=== PATIENT | female | born 1980 | race American Indian/Alaskan Native ===

== ENCOUNTER 2021-11-13 23:48 | Emergency (ER) | payer MEDICAID, MEDICARE ==
[2021-11-14 01:36] LABS: Basophils # (Auto) 0.1 K/mm3 (0.0-0.1); Basophils % (Auto) 0.6 % (0.0-1.8); Eosinophils # (Auto) 0.2 K/mm3 (0.0-0.4); Eosinophils % (Auto) 1.6 % (0.0-4.3); Hematocrit 22.2 % (30.3-42.9); Hemoglobin 6.8 gm/dl (10.1-14.3); Lymphocytes # (Auto) 2.4 K/mm3 (1.2-5.4); Lymphocytes % (Auto) 25.7 % (13.4-35.0); Mean Corpuscular HGB Conc 31 % (30-34); Mean Corpuscular Volume 88 fl (79-97); Monocytes # (Auto) 0.6 K/mm3 (0.0-0.8); Platelet Count 462 K/mm3 (140-440); Red Blood Count 2.52 M/mm3 (3.65-5.03); Red Cell Distribution Width 17.8 % (13.2-15.2)
[2021-11-14 01:39] LABS: Alanine Aminotransferase 14 units/L (7-56); Albumin 3.9 g/dL (3.9-5); BUN/Creatinine Ratio 8; Blood Urea Nitrogen 7 mg/dL (7-17); Calcium 8.8 mg/dL (8.4-10.2); Hemolysis Index 0
[2021-11-14 11:19] VITALS: BP 140/76
--- NOTE | 2021-11-14 11:37 | Emergency Department Report ---
ED General Adult HPI - General Chief complaint: Recheck/Abnormal Lab/Rx Stated complaint: My doctor sent me here Time Seen by Provider: 11/14/21 11:23 Source: patient, RN notes reviewed, old records reviewed Mode of arrival: Ambulatory Limitations: No Limitations - History of Present Illness Initial comments: The patient was evaluated in the emergency department for symptoms described in the history of present illness. He/she was evaluated in the context of the global COVID-19 pandemic, which necessitated consideration that the patient might be at risk for infection with the virus that causes COVID-19. Institutional protocols and algorithms that pertain to the evaluation of patients at risk for COVID-19 are in a state of rapid change based on information released by regulatory bodies including the CDC and federal and state organizations. These policies and algorithms were followed during the patient's care in the emergency department. Please note that these policies, procedures and recommendations changed on a rapid basis. This is a pleasant and cooperative 41-year-old female, with a history of hypertension, diabetes, body mass index of 37, who indicates that she is a [employer]ational, who was referred to the emergency room by her outpatient primary care doctor for chronic minimally symptomatic anemia. The patient has follow-up with a punch out crew member this Tuesday. The patient reports heavy menstruation since April. She has mild shortness of breath, fatigue, lightheadedness. She denies physical pain. She is currently taking iron sulfate supplementation [id number], as well as a stool softener, as well as her other additional medications. She indicates that she essentially feels at her chronic baseline, and that she would have not a presented to the emergency room, if not referred by her primary care doctor. She currently denies hematemesis, bright red blood per rectum, and vaginal bleeding. She does report a subacute to chronic history of chronic vaginal bleeding -: month(s) Consistency: intermittent Improves with: rest Worsens with: movement - Related Data Home Medications Medication Instructions Recorded Confirmed Last Taken Citalopram Hydrobromide [Celexa] 40 mg PO DAILY 10/13/13 10/13/13 09/26/13 Previous Rx's Medication Instructions Recorded Last Taken Type Citalopram Hydrobromide [Celexa] 40 mg PO DAILY #30 tablet 10/14/13 Unknown Rx Ibuprofen [Motrin 800 MG tab] 800 mg PO Q8H #30 tablet 10/14/13 Unknown Rx Dicyclomine [Bentyl] 20 mg PO Q8H PRN #15 tablet 06/08/15 Unknown Rx Sulfamethoxazole/Trimethoprim 1 each PO BID #10 tablet 06/08/15 Unknown Rx [Bactrim DS TAB] polyethylene glycoL 3350 [Miralax 17 gm PO QDAY PRN #3 packet 06/08/15 Unknown Rx 3350] Allergies Allergy/AdvReac Type Severity Reaction Status Date / Time No Known Allergies Allergy Verified 06/08/15 06:40 ED Review of Systems ROS: Stated complaint: LOW HEMOGLOBIN Other details as noted in HPI Constitutional: malaise, weakness. denies: fever Eyes: denies: eye discharge ENT: denies: epistaxis Respiratory: shortness of breath Cardiovascular: denies: chest pain Gastrointestinal: denies: abdominal pain, hematemesis, melena, hematochezia Genitourinary: abnormal menses Neurological: weakness Hematological/Lymphatic: denies: easy bleeding ED Past Medical Hx - Past Medical History Previous Medical History?: Yes Hx Psychiatric Treatment: Yes (Bi-polar, PTSD, Depression, Anxiety) Hx Asthma: Yes (mild) Additional medical history: anxiety disorder - Surgical History Past Surgical History?: Yes Additional Surgical History: desmoid tumor disease 1990. c section - Social History Smoking Status: Never Smoker Substance Use Type: Alcohol - Medications Home Medications: Home Medications Medication Instructions Recorded Confirmed Last Taken Type Citalopram Hydrobromide [Celexa] 40 mg PO DAILY 10/13/13 10/13/13 09/26/13 History Citalopram Hydrobromide [Celexa] 40 mg PO DAILY #30 tablet 10/14/13 Unknown Rx Ibuprofen [Motrin 800 MG tab] 800 mg PO Q8H #30 tablet 10/14/13 Unknown Rx Dicyclomine [Bentyl] 20 mg PO Q8H PRN #15 tablet 06/08/15 Unknown Rx Sulfamethoxazole/Trimethoprim 1 each PO BID #10 tablet 06/08/15 Unknown Rx [Bactrim DS TAB] polyethylene glycoL 3350 [Miralax 17 gm PO QDAY PRN #3 packet 06/08/15 Unknown Rx 3350] ED Physical Exam - General Limitations: No Limitations General appearance: alert, in no apparent distress, obese - Head Head exam: Present: atraumatic, normocephalic - Eye Eye exam: Present: normal appearance, EOMI, other (Bilateral conjunctiva are pale). Absent: nystagmus - ENT ENT exam: Present: mucous membranes moist - Neck Neck exam: Present: normal inspection, full ROM. Absent: tenderness, meningismus - Respiratory Respiratory exam: Present: normal lung sounds bilaterally. Absent: respiratory distress, wheezes, rales, rhonchi, stridor, decreased breath sounds - Cardiovascular Cardiovascular Exam: Present: regular rate, normal rhythm, normal heart sounds. Absent: bradycardia, tachycardia, irregular rhythm, systolic murmur, diastolic murmur, rubs, gallop - GI/Abdominal GI/Abdominal exam: Present: soft. Absent: distended, tenderness, guarding, rebound, rigid, pulsatile mass - Extremities Exam Extremities exam: Present: normal inspection, full ROM, normal capillary refill, other (2+ pulses noted in the bilateral upper and lower extremities. There is no palpable cord. negative Homans sign. Muscular compartments are soft. The pelvis is stable.). Absent: pedal edema, calf tenderness - Back Exam Back exam: Present: normal inspection, full ROM. Absent: tenderness, CVA tenderness (R), CVA tenderness (L), paraspinal tenderness, vertebral tenderness - Neurological Exam Neurological exam: Present: alert, oriented X3, other (No facial droop. Tongue midline. Extraocular movements intact bilaterally. Facial sensation intact to light touch in V1, V2, V3 distribution bilaterally. 5 and a 5 strength in 4 extremities. Sensation intact to light touch in 4 extremities.). Absent: motor sensory deficit - Psychiatric Psychiatric exam: Present: normal affect, normal mood - Skin Skin exam: Present: warm, dry, intact, normal color. Absent: rash ED Course Vital Signs 11/14/21 11/14/21 11/14/21 00:16 11:05 11:14 Temperature 98.3 F Pulse Rate 104 H 92 H Respiratory 18 16 Rate Blood Pressure 145/68 Blood Pressure 140/76 [Left] O2 Sat by Pulse 100 100 96 Oximetry O2 Sat by Pulse Oximetry [ Digit-Finger] 11/14/21 12:31 Temperature Pulse Rate Respiratory Rate Blood Pressure Blood Pressure [Left] O2 Sat by Pulse Oximetry O2 Sat by Pulse 100 Oximetry [ Digit-Finger] - Pulse Oximetry Interpretation Digit-Finger Initial Pulse Oximetry Readin O2 Sat by Pulse Oximetry: 100 Actions Taken: none ED Medical Decision Making - Lab Data Result diagrams: 11/14/21 01:04 11/14/21 01:04 Vital Signs 11/14/21 11/14/21 11/14/21 00:16 11:05 11:14 Temperature 98.3 F Pulse Rate 104 H 92 H Respiratory 18 16 Rate Blood Pressure 145/68 Blood Pressure 140/76 [Left] O2 Sat by Pulse 100 100 96 Oximetry Lab Results 11/14/21 11/14/21 11/14/21 Range/Units 01:04 01:04 Unknown WBC 9.3 (4.5-11.0) K/mm3 RBC 2.52 L (3.65-5.03) M/mm3 Hgb 6.8 L (10.1-14.3) gm/dl Hct 22.2 L (30.3-42.9) % MCV 88 (79-97) fl MCH 27 L (28-32) pg MCHC 31 (30-34) % RDW 17.8 H (13.2-15.2) % Plt Count 462 H (140-440) K/mm3 Lymph % (Auto) 25.7 (13.4-35.0) % [place] % (Auto) 6.0 (0.0-7.3) % Eos % (Auto) 1.6 (0.0-4.3) % Baso % (Auto) 0.6 (0.0-1.8) % Lymph # (Auto) 2.4 (1.2-5.4) K/mm3 [place] # (Auto) 0.6 (0.0-0.8) K/mm3 Eos # (Auto) 0.2 (0.0-0.4) K/mm3 Baso # (Auto) 0.1 (0.0-0.1) K/mm3 Seg Neutrophils % 66.1 (40.0-70.0) % Seg Neutrophils # 6.1 (1.8-7.7) K/mm3 Sodium 140 (137-145) mmol/L Potassium 4.4 (3.6-5.0) mmol/L Chloride 104.1 (98-107) mmol/L Carbon Dioxide 23 (22-30) mmol/L Anion Gap 17 mmol/L BUN 7 (7-17) mg/dL Creatinine 0.9 (0.6-1.2) mg/dL Estimated GFR > 60 ml/min BUN/Creatinine Ratio 8 % Glucose 189 H (65-100) mg/dL Calcium 8.8 (8.4-10.2) mg/dL Total Bilirubin < 0.20 (0.1-1.2) mg/dL AST 13 (5-40) units/L ALT 14 (7-56) units/L Alkaline Phosphatase 83 (35-129) units/L Total Protein 6.6 (6.3-8.2) g/dL Albumin 3.9 (3.9-5) g/dL Albumin/Globulin Ratio 1.4 % HCG, Quant < 2 (0-4) mIU/mL - Medical Decision Making Differential diagnosis, including but not limited to: Menorrhagia, metrorrhagia, dysfunctional uterine bleeding, chronic anemia, [employer]ational Assessment and plan: 41-year-old female, who is afebrile, with reassuring vital signs, resolved tachycardia, who is clinically sober with a GCS of 15, referred to the emergency room by her outpatient primary care doctor for subacute to chronic anemia which is mildly symptomatic. The patient is not acutely decompensated at this time. She is currently taking iron sulfate tablets. She has follow-up with an outpatient punch out crew member. It is my opinion that she does not require emergency blood transfusion at this time. The patient also does not want an emergency blood transfusion at this time secondary to her being a [employer]ational. It is also my opinion that she does not require emergent transfer to a facility that could provide bloodless intervention, and the patient is in agreement with this. With the patient's permission, I was able to discuss the details of her history and physical with her , as well as Mr. Tom Xavier, administer from hospital liaison committee for [employer]. Patient may continue current outpatient medications, pursue diet and lifestyle modifications, follow-up with outpatient gynecology this Tuesday as scheduled, and have also instructed the patient that she may also follow-up with outpatient financial secretary for consideration of outpatient iron infusions. The patient is observed in this department for hours without clinical decompensation. She is suitable for discharge at this point in time, return precautions are reviewed. All questions were answered peer Critical care attestation.: If time is entered above; I have spent that time in minutes in the direct care of this critically ill patient, excluding procedure time. ED Disposition Clinical Impression: Normocytic anemia, Heavy menses, Negative test Disposition: 01 HOME / SELF CARE / HOMELESS Is pt being admited?: No Does the pt Need Aspirin: No Condition: Stable Instructions: Abnormal Uterine Bleeding, Iron-Rich Diet Additional Instructions: Please continue current outpatient medications. Please follow-up with an outpatient punch out crew member within the next week. Patient may also follow-up with an outpatient financial secretary, such as Dr. Li, or Dr. Martinez, within the next week to 2 weeks, for outpatient evaluation for initiation of iron transfusions. Please return to the emergency room right away with new pain, worsened pain, migration of pain, projectile vomiting, change in mental status, confusion, inability tolerate liquid feeds, new, worsened or different symptoms not present on the initial emergency room evaluation Referrals: SCOTT LI MD [Staff Physician] - 3-5 Days BREANNA MARTINEZ MD [Staff Physician] - 3-5 Days [facility] [Provider Group] - 3-5 Days [facility] [Provider Group] - 3-5 Days
== END 2021-11-14 12:59 | disposition home or self-care (01) ==
LOC: ED 23:48
DX: D64.9 Anemia, unspecified (principal); N94.89 Other specified conditions associated with female genital organs and menstrual cycle; Z32.02 Encounter for pregnancy test, result negative; F10.20 Alcohol dependence, uncomplicated; J45.909 Unspecified asthma, uncomplicated; F31.9 Bipolar disorder, unspecified
CPT/HCPCS: 36415; 80053; 84702; 85025; 99283